=== PATIENT | female | born 1985 | race Caucasian/White ===

== ENCOUNTER 2023-07-30 05:43 | Outpatient (CLI) | payer OTHER, MEDICAID | END 2023-07-30 05:44 | disposition critical access hospital (66) | LOC: EMS 05:43 | DX: Z39.0 Encounter for care and examination of mother immediately after delivery (principal) | CPT/HCPCS: A0425; A0429; A0999 ==

== ENCOUNTER 2023-07-30 06:22 | Outpatient (CLI) | payer OTHER, MEDICAID ==
--- NOTE | 2023-07-30 06:42 | HISTORY & PHYSICAL EXAMINATION ---
Admit History - Visit Reason Visit Reason: Other (unplanned out of hospital ) - : 1 Parity: 0 Premature: 1 Ectopic: 0 : 0 Care: positive: None Risk/History: positive: No care, labor <37 weeks, Other (marijuana user, every day vaper, heavy soda drinker) Complications This : positive: <than 3 visits, Other (no known labs) - Mother's Labs Mother's Blood Type: positive: Unknown Mother's RH: positive: Unknown GBS: positive: Other (unknown) Rubella Status: positive: Unknown - Other Maternal History Other Maternal History: ANL: unknown ANC c/b: 1. no care - vaping, alcohol, and marijuana use during this , and some kratom, as she did not know she was . 2. taking OCPs throughout duration of 3. depression 4. AMA 5. currently we are noticing elevated BP - one in severe range. 6. is premature. PMH: depression, slipped disk in her back / nerve pain. PSH: gallbladder surgery POB: G1 PGYN: no h/o abnormal pap no h/o STDs no h/o problems with ovaries or uterus pt with regular monthly periods, when not Meds: venlafexine, gabapenton, trazadone (PRN) All: NKDA Soc: neg x3, lives with BREE Patel on property [place] her parents [place] in [place] currently works at the [employer] Fam: involved and supportive - Results and Plan Plan: presented post Meds/Allgy - Allergies Allergies/Adverse Reactions: Allergies Allergy/AdvReac Type Severity Reaction Status Date / Time No Known Drug Allergies Allergy Verified 07/30/23 08:14 Review of Systems - Other Findings Other Findings: Denies: F/C/N/V/CP/SOB Denies: dizziness, weakness, lightheadedness, difficulty with ambulation, palpitations Denies: REDDY / visual changes Physical - Other Notes Labor Progress Note/Additional Text: VS - elevated BP, otherwise wnl NAD Conjunctiva pink, pale sclera +S1, S2, CTAB, no increased work of breathing Abd soft, NT, ND, visibly post , blood on hands, legs, abdomen Jeri firm at U Perineum: 1' laceration hemostatic without repair Ext: neg CCE Plan for Labor - Plan For Labor I expect patient to be DC'd or transferred within 96 hours.: Yes Plan for Labor: 38yo now post from 0430 with mildly elevated BP -- admit to L&D -- routine admission / post labs AND CMP, UA, cord tox, and labs: blood type, ab, Rubella, RPR, HepB, HepC, HIV -- and PIH labs -- baby will be transferred out 2'2 prematurity
[2023-07-30] MEDS ORDERED: IBUPROFEN 600 MG TABLET PO PRN (06:55)
[2023-07-30] MEDS ORDERED: SIMETHICONE CHEW 80 MG TABLET PO PRN (06:55)
[2023-07-30] MEDS ORDERED: NIFEdipine 10 MG CAPSULE PO PRN (06:55)
[2023-07-30] MEDS ORDERED: CALCIUM CARBONATE CHEW 500 MG TABLET PO PRN (06:55)
[2023-07-30] MEDS ORDERED: LABETALOL 20 MG/4 ML SYRINGE IVP PRN ×3 (06:55)
[2023-07-30] MEDS ORDERED: ONDANSETRON ODT 4 MG TABLET TL PRN (06:55)
[2023-07-30] MEDS ORDERED: hydrALAZINE INJ 20 MG/ML VIAL IVP PRN ×2 (06:55)
[2023-07-30] MEDS ORDERED: ACETAMINOPHEN 325 MG TABLET PO PRN (06:55)
[2023-07-30] MEDS ORDERED: WITCH HAZEL/GLYCERIN 1 PAD TOP PRN (06:55)
[2023-07-30] MEDS ORDERED: LACTATED RINGERS 1,000 ML IV PRN (06:55)
[2023-07-30] MEDS ORDERED: ONDANSETRON 4 MG/2 ML VIAL IVP PRN ×2 (06:55)
[2023-07-30] MEDS ORDERED: ACETAMINOPHEN 500 MG TABLET PO SCH (07:00)
[2023-07-30] MEDS ORDERED: LACTATED RINGERS 1,000 ML IV SCH (07:00)
[2023-07-30 07:14] LABS: HCT - HEMATOCRIT 37.5 % (37.0-47.0); HGB - HEMOGLOBIN 12.5 g/dL (12.0-16.0); MEAN CORPUSCULAR HEMOGLOBIN 30.9 pg (27.0-31.0); MEAN CORPUSCULAR HGB CONC 33.3 g/dL (32.0-36.0); MEAN CORPUSCULAR VOLUME 92.8 fL (81.0-99.0); MEAN PLATELET VOLUME 10.8 fL (7.9-10.8); RED BLOOD COUNT 4.04 10^6/uL (4.20-5.40); RED CELL DISTRIBUTION WIDTH 13.8 % (12.0-15.0); WHITE BLOOD COUNT 13.8 x10^3/uL (4.8-10.8)
[2023-07-30 07:31] LABS: ALBUMIN 3.2 g/dL (3.2-5.5); ALBUMIN/GLOBULIN RATIO 1.2 (1.0-2.2); BILIRUBIN,TOTAL 0.2 mg/dL (0.2-1.0); CALCIUM 8.5 mg/dL (8.5-10.3); CREATININE 0.5 mg/dL (0.6-1.3); POTASSIUM 4.3 mmol/L (3.5-4.5); TOTAL PROTEIN 5.8 g/dL (6.4-8.9)
[2023-07-30 08:37] LABS: AMPHETAMINE SCREEN,URINE NEGATIVE (NEGATIVE); BARBITURATE SCREEN,UR NEGATIVE (NEGATIVE); BENZODIAZEPINES SCREEN, URINE NEGATIVE (NEGATIVE); COCAINE SCREEN URINE NEGATIVE (NEGATIVE); METHADONE SCREEN, URINE NEGATIVE (NEGATIVE); METHAMPHETAMINES SCREEN, URINE NEGATIVE (NEGATIVE); OPIATE SCREEN, URINE NEGATIVE (NEGATIVE); OXYCODONE SCREEN, URINE NEGATIVE (NEGATIVE); THC CANNABINOID SCREEN, URINE POSITIVE (NEGATIVE); TRICYCLIC ANTIDEPRESSANT,URINE NEGATIVE (NEGATIVE)
[2023-07-30 08:47] LABS: BUPRENORPHINE SCREEN, URINE NEGATIVE (NEGATIVE)
[2023-07-30] MEDS ORDERED: DOCUSATE SODIUM 100 MG CAPSULE PO SCH ×2 (09:00)
[2023-07-30 11:06] LABS: ESTIMATED AVERAGE GLUCOSE 108 mg/dL (70-100); HEMOGLOBIN A1c% 5.4 % (4.27-6.07)
--- NOTE | 2023-07-30 12:31 | Discharge Plan ---
Discharge Plan Problem Reviewed?: Yes Disposition: Home, Self Care Condition: Good Diet: Regular Shower Restrictions: No Instruction Topics: Depression , Preeclampsia No Smoking: If you smoke, Please STOP! Call for help. Follow-up with: Hema Castano MD [Provider Admit Priv/Credential] -
[2023-07-30 12:34] VITALS: O2SAT 99
--- NOTE | 2023-07-30 12:35 | DISCHARGE SUMMARY ---
Discharge Summary Admit Date: 07/30/23 Discharge Date: 07/30/23 Discharging Provider: Jamil Childers Code Status: Attempt Resuscitation Condition at Discharge: Good Discharge Disposition: 01 Home, Self Care - DIAGNOSES Admission Diagnoses: Home delivery Status post spontaneous vaginal delivery Discharge Diagnoses with Status of Each Condition: Same - HPI History of Present Illness: Patient doing well . She wishes to be discharged to go to NICU. No significant pain. Normal vaginal bleeding. Ambulating out difficulty. Voiding without difficulty. Denies headache, vision change, right upper quadrant pain. Temp Pulse Resp BP Pulse Ox O2 Flow Rate 98.5 F 16 99 07/30/23 10:00 07/30/23 10:00 07/30/23 10:00 - HOSPITAL COURSE Hospital Course: Patient presented from an unplanned home delivery. She did not know she was until delivering the baby at home. was transferred to [facility]. Patient had 1 elevated blood pressure, but followed by unsustained elevated, but nonsevere blood pressures. She does not know if she has a history of hypertension as she does not see a primary care provider regularly. She has no symptoms of preeclampsia. Laboratory evaluation was normal. She was positive for cannabinoids. We discussed the risk of depression as well as preeclampsia. Patient will follow-up in 4 days with [facility]. - ALLERGIES Allergies/Adverse Reactions: Allergies Allergy/AdvReac Type Severity Reaction Status Date / Time No Known Drug Allergies Allergy Verified 07/30/23 08:14 - LABS Result Diagrams: 07/30/23 06:50 07/30/23 06:50 - FOLLOW UP Follow Up: On Friday with [facility]. - TIME SPENT Time Spent in Discharge (Minutes): 20
--- NOTE | 2023-07-30 16:16 | Labor Flowsheet ---
Labor Flowsheet Datetime Report Generated by CPN: 07/30/2023 16:15 Datetime: 07/30/2023 12:06 VITAL SIGNS NBP Sys/Teodora/Mean (mmHg): 147 : 97 : 101 Pulse: 62 Datetime: 07/30/2023 09:31 COMMUNICATION Communication: Call/Page Placed to Provider Communication Comments: Dr. Childers updated on elevated BP. MD states he will review and call back . Datetime: 07/30/2023 07:15 Stage of : Recovery Respirations: 16 SpO2 (%): 99 Temperature (C): 37.0 Temperature Route: Oral PAIN Pain Scale: 4 Pain Presence: Constant Pain Type: Ache Pain Location: Abdomen; Back Pain Goal: 4 Pain Relief Measures: Comfort Measures
[2023-07-31 03:10] LABS: HBsAG SCREEN Negative (Negative)
[2023-07-31 05:12] LABS: HIV SCREEN 4TH GENERATION Non Reactive (Non Reactive); RPR Non Reactive (Non Reactive)
[2023-07-31 06:09] LABS: HCV AB Non Reactive (Non Reactive)
[2023-07-31] MEDS ORDERED: IBUPROFEN 600 MG TABLET PO SCH (07:00)
--- NOTE | 2023-08-01 08:22 | Labor Flowsheet ---
Labor Flowsheet Datetime Report Generated by CPN: 08/01/2023 08:21 Datetime: 07/30/2023 12:06 VITAL SIGNS NBP Sys/Teodora/Mean (mmHg): 147 : 97 : 101 Pulse: 62 Datetime: 07/30/2023 09:31 COMMUNICATION Communication: Call/Page Placed to Provider Communication Comments: Dr. Childers updated on elevated BP. MD states he will review and call back . Datetime: 07/30/2023 07:15 Stage of : Recovery Respirations: 16 SpO2 (%): 99 Temperature (C): 37.0 Temperature Route: Oral PAIN Pain Scale: 4 Pain Presence: Constant Pain Type: Ache Pain Location: Abdomen; Back Pain Goal: 4 Pain Relief Measures: Comfort Measures
== END 2023-07-30 13:30 | disposition home or self-care (01) ==
LOC: UNDOADMIN 06:22 → FBP 06:22 → WFO 06:22 → UNDODISIN 13:30 → WFO 13:30 → EDSTATUS 08-12 08:17
PROVIDERS: ATTEND Obstetrics & Gynecology
DX: O70.0 First degree perineal laceration during delivery (principal); O99.893 Other specified diseases and conditions complicating puerperium; R03.0 Elevated blood-pressure reading, without diagnosis of hypertension; R10.11 Right upper quadrant pain
CPT/HCPCS: 36415; 80053; 80306; 83036; 84550; 85027; 86592; 86762; 86803; 86850; 86900; 86901; 87340; 87389; A9270